=== PATIENT | male | born 1950 | race Caucasian/White ===

== ENCOUNTER → 2016-11-28 | Day surgery (SDC) | payer MEDICARE ==
[~2016-11-28] MED LIST: AGGR20025 PO; ASPI325T PO; ATOR40TA49 PO; LACTATED RINGER'S 1000 ML INJ 1,000 ML ONE; LISI-360 PO; MULTCAP14 PO; PROPOFOL 200 MG/20 ML AMP IV ONE
--- NOTE | 2016-11-28 09:28 | GIPROC ---
[facility] [address] [facility], [address] EGD PROCEDURE REPORT EXAM DATE: 11/28/2016 PATIENT NAME: Ramirez Beltrán MR #: [id number] BIRTHDATE: 1950 ATTENDING: Eduard Brito MD ORDER #: [id number] WASTEWATER PROCESS ENGINEER: Liana Wayne RN STATUS: outpatient INDICATIONS: The patient is a 65 yr old male here for an EGD due to Postoperative assessment PROCEDURE PERFORMED: EGD w/ biopsy MEDICATIONS: None, Per Anesthesia, None, and Per Anesthesia. TOPICAL ANESTHETIC: CONSENT: The patient understands the risks and benefits of the procedure and understands that these risks include, but are not limited to: sedation, allergic reaction, infection, perforation and/or bleeding. Alternative means of evaluation and treatment include, among others: physical exam, x-rays, and/or surgical intervention. The patient elects to proceed with this endoscopic procedure. medical equipment was checked for proper function. Hand hygiene and appropriate measures for infection prevention was taken. After the risks, benefits and alternatives of the procedure were thoroughly explained, Informed consent was verified, confirmed and timeout was successfully executed by the treatment team. The patient was anesthetized with topical anesthesia and the EG-[id number] ([id number]) endoscope was introduced through the mouth and advanced to the second portion of the duodenum. Retroflexed views revealed no abnormalities The gastroscope was then slowly withdrawn and removed. ESOPHAGUS: There was LA Class B esophagitis noted. Multiple biopsies were performed. The endoscopy was otherwise normal. STOMACH: There was mild gastritis in the gastric antrum. Multiple biopsies were performed. ADVERSE EVENTS: There were no complications. IMPRESSIONS: 1. There was LA Class B esophagitis noted; multiple biopsies were performed 2. Normal endoscopy otherwise 3. There was mild gastritis in the gastric antrum; multiple biopsies were performed 4. Retroflexed views revealed no abnormalities RECOMMENDATIONS: 1. Await biopsy results. Biopsy results will not be ready for 7-10 days. If you don't hear from us in two weeks, call our office for biopsy results. 2. Anti-reflux regimen 3. Follow-up: GI clinic 3 week(s) 4. Protonix 40mg Q AM PATIENT CONDITION: stable DISPOSITION: Home REPEAT EXAM: NONE Eduard Brito MD eSigned: Eduard Brito MD 11/28/2016 9:27 AM cc: Brigido Pizano [facility] [place] PATIENT NAME: Ramirez Beltrán MR#: [id number]
== END | disposition home or self-care (01) ==
LOC: ESDC 08:04
PROVIDERS: ATTEND Internal Medicine Gastroenterology
DX: Z01.818 Encounter for other preprocedural examination (principal); E66.9 Obesity, unspecified; K20.9 Esophagitis, unspecified; K29.70 Gastritis, unspecified, without bleeding
CPT/HCPCS: 00740; 43239; 88305; 88312; J3010; J7120